=== PATIENT | female | born 1990 | race Caucasian/White ===

== ENCOUNTER 2019-05-04 08:36 | Emergency (ER) | payer OTHER ==
[~2019-05-04] VITALS: Ht 167.6 cm; Wt 78.0 kg
[2019-05-04] MEDS ORDERED: PROVIDA DHA CA1 EACH (09:06)
== END 2019-05-04 10:08 | disposition home or self-care (01) ==
LOC: ER 08:36
DX: J02.8 Acute pharyngitis due to other specified organisms (principal)

== ENCOUNTER 2019-05-13 17:49 | Outpatient (CLI) | payer OTHER ==
[~2019-05-13 17:49] MED LIST: PROVIDA DHA CA1 EACH
== END 2019-05-14 16:33 | disposition home or self-care (01) ==
LOC: OBS/DEL 17:49
DX: O23.593 Infection of other part of genital tract in pregnancy, third trimester (principal); O47.03 False labor before 37 completed weeks of gestation, third trimester

== ENCOUNTER 2019-05-31 00:28 | Inpatient (IN) | payer OTHER ==
[~2019-05-31] VITALS: Ht 167.6 cm; Wt 80.7 kg
== END 2019-06-02 14:42 | disposition home or self-care (01) | DRG 807 ==
LOC: OB/GYN 00:28 → LDR 00:28 → OB/GYN 01:22 → LDR 02:35 → OB/GYN 10:36
PROVIDERS: ADMIT Obstetrics & Gynecology
PROC: 10E0XZZ Delivery of Products of Conception, External Approach (ICD-10-PCS; principal; 2019-05-31)
PROC: 0KQM0ZZ Repair Perineum Muscle, Open Approach (ICD-10-PCS; 2019-05-31)
PROC: 4A1HXCZ Monitoring of Products of Conception, Cardiac Rate, External Approach (ICD-10-PCS; 2019-05-31)
PROC: 4A033R1 Measurement of Arterial Saturation, Peripheral, Percutaneous Approach (ICD-10-PCS; 2019-05-31)
DX: O70.1 Second degree perineal laceration during delivery (principal); Z37.0 Single live birth; Z3A.38 38 weeks gestation of pregnancy

== ENCOUNTER → 2019-06-13 | Emergency (ER) | payer OTHER ==
[~2019-06-13] VITALS: Ht 167.6 cm; Wt 72.6 kg
== END | disposition home or self-care (01) ==
LOC: ER 20:57
DX: J40 Bronchitis, not specified as acute or chronic (principal)